=== PATIENT | female | born 1960 | race Caucasian/White ===

== ENCOUNTER → 2017-04-04 | Outpatient (CLI) | payer OTHER ==
[~2017-04-04] MED LIST: BUTA1CAP PO; IBUP1TAB7 PO; VENTAER INH
--- NOTE | 2017-04-04 17:06 | RADRPT ---
EXAM DATE/TIME: 04/04/2017 15:41 [facility] COMPARISON: No previous studies available for comparison. INDICATIONS : Evaluate for pneumonia, pneumothorax and communicable diseases. Pre-op Hysterectomy MEDICAL HISTORY : Asthma SURGICAL HISTORY : None. ENCOUNTER: Initial ACUITY: 1 day PAIN SCORE: 0/10 LOCATION: chest FINDINGS: PA and lateral views of the chest demonstrate the lungs to be symmetrically aerated without evidence of mass, infiltrate or effusion. The cardiomediastinal contours are unremarkable. Large hiatal ana ia. Osseous structures are intact. CONCLUSION: 1. Large hiatal hernia. 2. No acute cardiopulmonary disease. Jasbir Garcia MD on April 04, 2017 at 17:04 Board Certified Radiologist. This report was verified electronically.
--- NOTE | 2017-04-06 00:58 | EKG ---
Date Performed: 04/04/2017 Time Performed: 14:59:01 PTAGE: 56 years EKG: Sinus rhythm LOW QRS VOLTAGE IN PRECORDIAL LEADS NONSPECIFIC T-WAVE ABNORMALITY BORDERLINE ECG NO PREVIOUS TRACING DOCTOR: Robson Cross Interpretating Date/Time 04/06/2017 00:58:08
== END ==
LOC: CPRE 14:43
PROVIDERS: ATTEND Obstetrics & Gynecology Gynecologic Oncology
DX: Z01.810 Encounter for preprocedural cardiovascular examination (principal); Z01.811 Encounter for preprocedural respiratory examination; C54.1 Malignant neoplasm of endometrium; R94.31 Abnormal electrocardiogram [ECG] [EKG]
CPT/HCPCS: 71046; 93005

== ENCOUNTER 2017-04-18 05:26 | Observation (INO) | payer OTHER ==
[~2017-04-18] VITALS: Ht 148.6 cm; Wt 104.7 kg
[2017-04-18] MEDS ORDERED: LACTATED RINGER'S 1000 ML IV PRN (05:45)
[2017-04-18] MEDS ORDERED: CHLORHEXIDINE GLUCONATE 2 % 1 PACK (2 CLOTHS) TOPICAL PRN (05:45)
[2017-04-18] MEDS ORDERED: HEPARIN SODIUM - SQ 10,000 UNITS/ML VIAL SQ SCH (05:45)
[2017-04-18] MEDS ORDERED: POVIDONE IODINE 5% (ANTISEPSIS KIT) 4 APPLICATIONS EACH NARE PRN (05:45)
[2017-04-18] MEDS ORDERED: ceFAZolin 2 GM PREMIX 50 ML IV SCH (05:45)
[2017-04-18] MEDS ORDERED: METOPROLOL TARTRATE 25 MG TAB PO PRN (05:45)
[2017-04-18] MEDS ORDERED: SODIUM CHLORID 0.9% 500 ML IV PRN (05:45)
[2017-04-18] MEDS ORDERED: SUGAMMADEX SODIUM 200 MG/2 ML VIAL IV PUSH ONE (06:59)
[2017-04-18] MEDS ORDERED: ACETAMINOPHEN 1000 MG/100 ML 100 ML IV ONE (06:59)
[2017-04-18] MEDS ORDERED: ARTIFICIAL TEARS OPTH OINT 3.5 APPLIC/3.5 GM TUBO ONE (07:00)
[2017-04-18] MEDS ORDERED: FAMOTIDINE 20 MG/2 ML VIAL ONE (07:15)
[2017-04-18] MEDS ORDERED: METHYLENE BLUE 10 MG/ML VIAL OTHER ONE (10:33)
[2017-04-18] MEDS ORDERED: LIDOCAINE 1%/EPINEPHrine 1:100,000 SOLN 20 ML VIAL INFIL ONE (10:34)
[2017-04-18] MEDS ORDERED: ceFAZolin INJ 1,000 MG VIAL IV ONE ×2 (11:22→12:00)
[2017-04-18] MEDS: KETOROLAC TROMETHAMINE 30 MG/ML (IVP) VIAL IVP SCH ×2 (12:00→18:04)
[2017-04-18] MEDS ORDERED: PHENYLEPH/NS 1000 MCG/10 ML SYR IV ONE (12:00)
[2017-04-18] MEDS ORDERED: ONDANSETRON HCL 4 MG/2 ML VIAL IVP PRN (12:00)
[2017-04-18] MEDS ORDERED: DEXAMETHASONE SOD PHOS 4 MG/ML VIAL IV ONE (12:00)
[2017-04-18] MEDS ORDERED: ONDANSETRON HCL 4 MG/2 ML VIAL IV ONE (12:00)
[2017-04-18] MEDS ORDERED: SODIUM CHLORIDE 0.9% FLUSH 10 ML FLUSH IV FLUSH PRN (12:00)
[2017-04-18] MEDS ORDERED: VECURONIUM BROMIDE 20 MG VIAL IV ONE (12:00)
[2017-04-18] MEDS ORDERED: STERILE WATER FOR INJECTION 20 ML VIAL IV ONE (12:00)
[2017-04-18] MEDS ORDERED: LORazepam 0.5 MG TAB PO PRN (12:00)
[2017-04-18] MEDS ORDERED: KETOROLAC TROMETHAMINE 30 MG/ML (IVP) VIAL IV PUSH ONE (12:00)
[2017-04-18] MEDS ORDERED: LIDOCAINE HCL 1% PF 5 ML SYRINGE OTHER ONE (12:00)
[2017-04-18] MEDS ORDERED: PROPOFOL 200 MG/20 ML AMP IV ONE (12:00)
[2017-04-18] MEDS ORDERED: ROCURONIUM INJ 50 MG/5 ML SYRINGE IV PUSH ONE (12:00)
[2017-04-18] MEDS ORDERED: NORMOSOL R INJ 1,000 ML IV ONE (12:00)
[2017-04-18] MEDS ORDERED: diphenhydrAMINE HCL 25 MG CAP PO PRN (12:00)
[2017-04-18] MEDS ORDERED: ePHEDrine/NS 25 MG/5 ML SYRINGE IV ONE (12:00)
[2017-04-18] MEDS ORDERED: ALBUTEROL SULFATE 90 MCG/ACT HFA 8 GM INHALER INH PRN (12:00)
[2017-04-18] MEDS ORDERED: oxyCODONE/ACETAMINOPHEN 5 MG/325 MG TAB PO PRN ×2 (12:00)
[2017-04-18] MEDS ORDERED: MIDAZOLAM HCL 2 MG/2 ML VIAL ONE (12:47)
[2017-04-18] MEDS: D5-1/2 NS + KCL 20 MEQ INJ 1,000 ML IV SCH ×2 (13:00→20:52)
[2017-04-18] MEDS ORDERED: *morphine SULFATE 10 MG/ML PERIprocedure ONLY ONE (13:03)
[2017-04-18] MEDS ORDERED: DO NOT ADM ANY ANTICOAGULANT DRUGS PRN (14:45)
--- NOTE | 2017-04-18 15:03 | HHI.PR ---
Subjective . POST-OP CHECK She is seen in PACU resting, no c/o pain controlled Objective . afeb, vss uop > 30 ml/hr lungs cta at apices, cv rrr abd soft, incisions clean & dry emblem cutter no bleeding ext nt, scds in place Assessment/Plan . DOS, doing well in early post-op period Q&A, findings reviewed CPM, anticipate transfer to [address] [place], [place] [id number] MD Apr 18, 2017 15:02
[2017-04-18 16:00] VITALS: BP 128/60; PULSE 74; RESP 18; TEMP 97.8; O2SAT 96
[2017-04-18 20:44] VITALS: BP 147/60; PULSE 74; PULSE 89; RESP 16; TEMP 98.1; O2SAT 93
[2017-04-18] MEDS ORDERED: SODIUM CHLORIDE 0.9% FLUSH 10 ML FLUSH IV FLUSH SCH (21:00)
[2017-04-19] VITALS: PULSE 66
[2017-04-19 00:17] VITALS: BP 135/62; PULSE 76; RESP 16; TEMP 98.2; O2SAT 93
[2017-04-19] MEDS: KETOROLAC TROMETHAMINE 30 MG/ML (IVP) VIAL IVP SCH ×2 (00:20→06:23)
[2017-04-19 04:00] VITALS: PULSE 69
[2017-04-19 04:31] VITALS: BP 116/59; PULSE 71; RESP 16; TEMP 98; O2SAT 95
[2017-04-19] MEDS: D5-1/2 NS + KCL 20 MEQ INJ 1,000 ML IV SCH (04:34)
[2017-04-19 07:31] LABS: AUTOMATED NEUTROPHIL # 8.2 TH/MM3 (1.8-7.7); BASOPHIL % 0.2 % (0.0-2.0); EOSINOPHIL % 0.1 % (0.0-4.0); HEMATOCRIT 37.9 % (35.0-46.0); HEMOGLOBIN 12.7 GM/DL (11.6-15.3); LYMPH % 13.7 % (9.0-44.0); LYMPHOCYTE # 1.4 TH/MM3 (1.0-4.8); MEAN CELL VOLUME 87.3 FL (80.0-100.0); MEAN CORPUSCULAR HEMOGLOBIN 29.4 PG (27.0-34.0); MEAN CORPUSCULAR HGB CONC 33.6 % (32.0-36.0); MEAN PLATELET VOLUME 9.4 FL (7.0-11.0); MONO % 7.9 % (0.0-8.0); MONOCYTE # 0.8 TH/MM3 (0-0.9); NEUT % 78.1 % (16.0-70.0); PLATELET COUNT 106 TH/MM3 (150-450); RED BLOOD COUNT 4.34 MIL/MM3 (4.00-5.30); RED CELL DISTRIBUTION WIDTH 13.8 % (11.6-17.2); WHITE BLOOD COUNT 10.5 TH/MM3 (4.0-11.0)
[2017-04-19] MEDS ORDERED: NITR100C4 PO (07:36)
[2017-04-19] MEDS ORDERED: OXYC1TAB63 PO (07:36)
[2017-04-19 07:38] LABS: BICARBONATE 23.5 MEQ/L (21.0-32.0); CALCIUM 8.3 MG/DL (8.5-10.1); CREATININE 0.6 MG/DL (0.50-1.00)
[2017-04-19 08:00] VITALS: BP 155/84; PULSE 78; RESP 16; TEMP 97.3; O2SAT 95
[2017-04-19] MEDS ORDERED: NITROFURANTOIN MONOHYD MACROCR 100 MG CAP PO SCH (09:30)
--- NOTE | 2017-04-20 09:57 | MD ---
cc: Diann Read MD,Bartolo Figueroa,Ayla Sullivan MD DATE OF DISCHARGE: 04/19/2017 DATE OF ADMISSION: 04/18/2017 DATE OF DISCHARGE: 04/19/2017 PROCEDURE: 04/27/2017, robotic assisted laparoscopic hysterectomy, bilateral salpingo-oophorectomy, extensive lysis of adhesion. DIAGNOSIS: Endometrial cancer. HOSPITAL COURSE: She did well in her early postop period. Hemodynamically stable. Ins and outs 1765/2300. Labs pending at the time of this dictation. PHYSICAL EXAMINATION: VITAL SIGNS: Afebrile, pulse 66-76, respirations 16, blood pressure 116-147/59-62, O2 saturations greater than or equal to 95% while awake. LUNGS: Clear to auscultation, except for mild basilar rales. CARDIOVASCULAR: Regular rate and rhythm. ABDOMEN: Incisions clean and dry. Abdomen soft. GYNECOLOGIC: No bleeding. EXTREMITIES: Nontender. ASSESSMENT: Postoperative day #1, doing well in her early postoperative period. Findings at the time of surgery, preliminary pathology discussed and reviewed, extensive adhesions between the bladder, lower uterine segment and cervix, probably from prior sections discussed and the extensive dissection with oversewing of the bladder reviewed. Recommendation for indwelling Mcdowell catheter for 10 days is made with daily prophylactic antibiotic once daily. PLAN: Anticipate she will meet criteria for discharge to home. She is to call our office to ensure she has followup scheduled in 10 days. She is to have Percocet prescription for pain. She will have Macrodantin prescription to take once daily. She is to resume prior medications. Activities, restrictions discussed and reviewed, questions were asked and answered, she expressed good understanding and agreed. MD HARIS Martinez/WILMER , 07:39 AM , 09:55 AM
--- NOTE | 2017-04-29 12:58 | MP ---
cc: Diann Read MD, Tedra E MD Fredette-Huffman,Ayla Sullivan MD DATE OF OPERATION: 04/18/2017 PREOPERATIVE DIAGNOSIS: 1. Postmenopausal bleeding. 2. Complex atypical endometrial hyperplasia. POSTOPERATIVE DIAGNOSIS: 1. Postmenopausal bleeding. 2. Complex atypical endometrial hyperplasia. 3. Dense pelvic adhesions. PROCEDURE: Robotic assisted laparoscopic hysterectomy, bilateral salpingo-oophorectomy, extensive lysis of adhesions. SURGEON: Diann Read MD AREA FIELD WORKER: Jose Angel assistant vice president. ANESTHESIA: General endotracheal anesthesia. ESTIMATED BLOOD LOSS: 200 mL. HISTORY: This is a 56-year-old female with postmenopausal bleeding, thickened endometrial stripe. Biopsy showed complex atypical endometrial hyperplasia. She was counseled regarding options, was in favor of surgical management over medical management and counseled regarding the procedure. She is seen again in the preop holding area where findings were reviewed. The procedure was discussed and questions were asked and answered. She expressed a good understanding and wanted to proceed with surgery. FINDINGS: The uterine cavity sounded to approximately 9 cm, otherwise grossly appeared normal. Tubes and ovaries grossly appeared normal. There is no appreciable retroperitoneal adenopathy in the pelvis or paraaortic region. In the peritoneal cavity, liver diaphragm edges were smooth. Omentum grossly appeared normal. Large, small bowel and adjacent mesentery were free of any implants. In the pelvis, there were very dense adhesions between the bladder. The bladder was stuck to the uterine fundus anteriorly and densely adherent all the way down the anterior wall of the uterus and cervix presumably from intense scarring from prior sections. There are minimal adhesions against the pelvis side wall. The preliminary pathology on frozen section showed what appeared to be a tumor 2.7 cm in greatest dimension. There did appear to be some myometrial invasion estimated approximately 6 mm out of a myometrium thickness of 20 mm. The endocervix was not involved. STATEMENT OF COMPLEXITY/MODIFIER: The dense extensive pelvic adhesions required a significant amount of time and extra effort lysing adhesions to gain a safe access to the pelvis, accomplish surgical objectives and restore normal anatomy. A modifier should be applied according. PROCEDURE: She was taken to the operating room, placed in the dorsal lithotomy position after general endotracheal anesthesia was administered. A time out was undertaken. She was identified by sight recognition and hospital ID bracelet and the proposed procedure was reviewed and confirmed. She was carefully positioned in padded Mat stirrups. Her arms were padded and secured to their sides. She was further secured to the operating table with egg crate padding and tape in a cross chest over the shoulder fashion. All sites noted to be properly aligned with no malalignments or pressure points. Prepped and draped in a sterile fashion, placed in lithotomy position. Cervix grasped, uterine cavity sounded, dilated, standard VCare manipulator inserted and secured in the usual fashion. Mcdowell catheter placed in the bladder. She was turned to low lithotomy position. A change of sterile gloves was undertaken. We completed draping in anticipation of laparoscopy, confirmed an orogastric tube was in the stomach on suction. With manual elevation of the abdominal wall and direct laparoscopic visualization, a 5 mm cannula placed in the left upper quadrant with an atraumatic entry confirmed. Carbon dioxide gas was insufflated. A 12 mm cannula placed in the midline above the umbilicus. An 8 mm cannula was placed in the right upper quadrant and left lateral quadrant and the original 5 mm cannula exchanged for an 8 mm cannula. She was placed in Trendelenburg position. Peritoneal washings were obtained for cytology. The anatomy was surveyed with findings as described above. The small bowel folded back on its mesenteric root. Three Ray-Seb sponges were placed around the root of the small bowel mesentery. The robotic system was brought into the operative field, attached in the usual fashion. Monopolar scissors, fenestrated bipolar forceps and Prograsp manipulators placed in arms #1, 2 and 3 respectively. I took my place at the surgeon's consul. The right round ligament cauterized and transected. Anterior and posterior leafs of the broad ligament were opened. The right ureter was identified. The right infundibulopelvic ligament was isolated. The intervening peritoneum was opened. The infundibulopelvic ligament was isolated to the level of the pelvic brim where it was cauterized thoroughly and transected. The posterior peritoneum opened along the right side of the uterus and cervix. The uterine vessels were skeletonized. The initial dissection was carried out to try to initiate lysis of adhesions and take down the bladder flap when the extensive dense adhesions were noted. Attention was directed towards the left side. The left round ligament isolated, cauterized and transected. The anterior and posterior leafs of the broad ligament were opened. The left ureter was identified. The left infundibulopelvic ligament was isolated. The intervening peritoneum opened. The infundibulopelvic ligament isolated to the level of the pelvic brim where it was cauterized and transected. The posterior peritoneum opened along the left side of the uterus and cervix. The left uterine vessels were skeletonized. Dissection was initiated regarding the bladder flap and scarring along the left side. Once the bladder was satisfactorily dissected away from the uterine vessels, the uterine vessels were cauterized bilaterally. To facilitate identification of the anatomy and proper dissection, the bladder was filled with saline dyed with methylene blue. The edge of the bladder was determined. Sharp dissection was used to take down the scar tissue, dissect it from the anterior wall of the uterus and cervix in a stepwise fashion until the bladder was dissected below the level of the cervix. Now the uterine vessels were transected bilaterally. The cardinal ligaments were isolated, cauterized and transected bilaterally as were the paracervical and uterosacral ligaments. Circumferential colpotomy was performed the cervix from the upper vagina. Specimen was withdrawn transvaginally which included uterus, cervix, tubes and ovaries. A pneumo-occluder balloon was placed in the vagina to maintain pneumoperitoneum. Instruments 1 and 3 exchanged for needle drivers. 0 Vicryl suture was introduced. The vaginal cuff was closed starting at the left corner. Full thickness closure including the posterior peritoneum and uterosacral ligaments tied via instrument tie. The closure was held on countertraction as a running continuous full thickness closure was carried across the vaginal apex to the contralateral corner where it was similarly fixed, secured and tied, the needle was cut and removed. The pelvis was thoroughly irrigated. Small bleeders rendered hemostatic with bipolar cautery. There was a good margin between the bladder and vaginal cuff suture line and the bladder was reinspected, filled with saline dyed with methylene blue. Whereas there was no cystotomy. Some of the adjacent adipose tissue and peritoneum adjacent to the bladder that was thin and and there was no extravasation of dye, but there was an area where the blue dye that was visible due to the thinning of the bladder wall. Accordingly, needle drivers and 3-0 Vicryl suture was introduced and the area was reinforced in the bladder with interrupted [id number] 3-0 Vicryl sutures to completely reapproximate and reinforce this area and redraw the peritoneum and adipose tissue adjacent to the bladder in proximity to overlie this area that needed reinforcement. The needle was cut and removed. The pelvis was thoroughly irrigated. Pathology came back showing minimally invasive grade 1 tumor. It was felt that morbidity from lymphadenectomy may exceed benefit. There were no abnormalities appreciated and it was felt that all reasonable surgical objectives in this individual were completed. Accordingly, the robotic instruments were removed. The robotic system disengaged from the operative field. I reentered the bedside under sterile condition. Each of the 3 Ray-Seb sponges that had been placed were now removed individually. Each were inspected, noted to be removed in their entirety. There were no remaining foreign objects in the peritoneal cavity. Preliminary counts were correct. The 12 mm fascial defect was closed with 0 Vicryl suture using a needle pass apparatus. They were tied securely rendering the fascia completely air-tight and hemostatic. The remaining cannulas were withdrawn. Carbon dioxide gas removed from the peritoneal cavity. 3-0 Vicryl subcutaneous, 3-0 Vicryl subcuticular and Steri-Strips were used to closed these incisions. She was returned to lithotomy position. Pelvic exam confirmed the vaginal cuff was well supported and hemostatic. There were no vaginal lacerations. No remaining foreign objects in the vagina. Final counts were correct. She was returned to dorsal supine position and was pending reversal of anesthesia when I left the operating room to precede her to the post-anesthesia care unit. MD HARIS Martinez/MAGO , 07:59 AM , 08:57 AM
== END 2017-04-19 11:18 | disposition home or self-care (01) ==
LOC: HSDC 05:26 → HSDI 12:00 → HCIN 15:32
PROVIDERS: ADMIT Obstetrics & Gynecology Gynecologic Oncology; ATTEND Obstetrics & Gynecology Gynecologic Oncology
DX: C54.1 Malignant neoplasm of endometrium (principal); N73.6 Female pelvic peritoneal adhesions (postinfective)
CPT/HCPCS: 00840; 58552; 80048; 85025; 86850; 86900; 86901; 86920; 86922; 88112; 88307; 88329; 94150; 96361; 96374; 96376; G0378; J0131; J0690; J1100; J1644; J1885; J2250; J2270; J2370; J2405; J3010; J3480; J7120